=== PATIENT | male | born 1965 | race Caucasian/White ===

== ENCOUNTER 2023-02-25 09:53 | Outpatient (OUT) | payer OTHER, SELFPAY ==
[2023-02-25 10:30] LABS: Basophils Absolute Auto 0.1 10^3/uL (0.0-0.1); Eosinophils Absolute Auto 0.3 10^3/uL (0.0-0.7); Eosinophils Percent Auto 3.9 % (0.9-7.0); Hematocrit 42.5 % (42.0-54.0); Hemoglobin 14.7 g/dL (14.0-18.0); Immature Granulocytes Abs Auto 0.03 10^3/uL (0.00-0.03); Immature Granulocytes Pct Auto 0.4 % (0.0-0.5); Lymphocytes Absolute Auto 2.2 10^3/uL (1.2-3.8); Mean Corpuscular HGB Conc 34.6 g/dL (29.9-35.2); Mean Corpuscular Hemoglobin 30.5 pg (25.9-34.0); Mean Corpuscular Volume 88.2 fL (80.0-94.0); Mean Platelet Volume 9.4 fL (9.5-13.5); Monocytes Absolute Auto 0.7 10^3/uL (0.3-0.8); Monocytes Percent Auto 9.3 % (1.7-12.0); Neutrophils Absolute Auto 3.8 10^3/uL (1.4-6.5); Neutrophils Percent Auto 54.4 % (43.0-75.0); Platelet Count 285 10^3/uL (150-450); Red Blood Count 4.82 10^6/uL (4.70-6.10); Red Cell Distribution Width 12.8 % (11.0-15.0)
[2023-02-25 13:03] LABS: Alanine Aminotransferase 27 U/L (16-63); Albumin Globulin Ratio 1.3; Albumin Level 4.4 g/dL (3.4-5.0); Alkaline Phosphatase 88 U/L (46-116); Aspartate Amino Transferase 19 U/L (15-37); BUN Creatinine Ratio 13.4; Bilirubin Total 0.5 mg/dL (0.2-1.0); Calcium 9.3 mg/dL (8.5-10.1); Carbon Dioxide 26.5 mmol/L (21.0-32.0); Chloride 103 mmol/L (98-107); Chol HDL Ratio 4.5; Cholesterol 212 mg/dL (<=200); Estimated GFR (African America >60 (>=60); Estimated GFR (Non-African Ame >60 (>=60); Free T3 2.18 pg/mL (2.18-3.98); Globulin 3.5 g/dL; Glucose 125 mg/dL (74-106); HDL Cholesterol 47 mg/dL (40-60); Potassium 4.5 mmol/L (3.5-5.1); Sodium 139 mmol/L (136-145); Thyroid Stimulating Hormone 1.723 uIU/mL (0.358-3.740); Total Protein 7.9 g/dL (6.4-8.2); Triglycerides 126 mg/dL (<=150); VLDL CHOLESTEROL 25.2 mg/dL
[2023-02-25 13:14] LABS: Prostate Specific Antigen Scrn 0.42 ng/mL (<=4.00)
[2023-02-25 16:20] LABS: Estimated Average Glucose 128 mg/dL; Glycohemoglobin A1C 6.1 % (4.5-6.2)
== END 2023-02-25 09:54 | disposition home or self-care (01) ==
LOC: LAB 09:56
PROVIDERS: PCP Family Medicine; Visit Provider Family Medicine
DX: Z00.00 Encounter for general adult medical examination without abnormal findings (principal); Z12.5 Encounter for screening for malignant neoplasm of prostate
CPT/HCPCS: 36415; 80053; 80061; 83036; 84436; 84443; 84481; 85025; G0103

== ENCOUNTER 2023-03-18 09:09 | Outpatient (OUT) | payer OTHER, SELFPAY ==
--- NOTE | 2023-03-18 09:19 | CT_ITS ---
[address] [address] Patient Name: NATHALY ALEXANDER MRN: [id number] date: 1965 Sex: M Assigned Patient Location: CT Current Patient Location: CT Accession/Order Number: [id number] Exam Date: 03/18/2023 09:25 Report Date: 03/18/2023 11:32 At the request of: BEENA CHI Procedure: CT lung screening low-dose EXAMINATION: CT lung screening low-dose HISTORY: History Of Tobacco Dependence Z87.891 COMPARISON: No relevant comparison available. TECHNIQUE: Axial, Coronal, and Sagittal images were created without the administration of IV contrast material. Dose reduction techniques were achieved by using automated exposure control and/or adjustment of mA and/or kV according to patient size and/or use of iterative reconstruction technique. FINDINGS: LUNGS: No visible pulmonary disease. PLEURA: No mass, effusion, or pneumothorax. VASCULATURE: No abnormality. REYNALDO: No mass or pathologic adenopathy. MEDIASTINUM: No mass or pathologic adenopathy. CARDIAC: No enlargement, pericardial thickening, or significant calcification. AORTA: No aneurysm or dissection. CHEST WALL: No mass or axillary adenopathy BONES: No bone lesion or fracture. LIMITED ABDOMEN: No suspicious findings. Limited images of the upper abdomen. OTHER: Negative. CT/CT lung screening low-dose IMPRESSION: 1. Lung-RADS Category 1 Negative. No nodules and definitely benign nodules. Continue annual screening with LDCT in 12 months. Electronically authenticated by: YESENIA HANNON Date: 03/18/2023 11:32
== END 2023-03-18 09:10 | disposition home or self-care (01) ==
PROVIDERS: PCP Family Medicine; Visit Provider Family Medicine
DX: Z00.00 Encounter for general adult medical examination without abnormal findings (principal); Z87.891 Personal history of nicotine dependence
CPT/HCPCS: 71271

== ENCOUNTER 2023-10-28 08:52 | Outpatient (OUT) | payer OTHER, SELFPAY ==
[2023-10-28 09:25] LABS: Basophils Absolute Auto 0.1 10^3/uL (0.0-0.1); Basophils Percent Auto 0.6 % (0.2-2.0); Eosinophils Absolute Auto 0.3 10^3/uL (0.0-0.7); Eosinophils Percent Auto 2.7 % (0.9-7.0); Hematocrit 40.8 % (42.0-54.0); Immature Granulocytes Abs Auto 0.03 10^3/uL (0.00-0.03); Immature Granulocytes Pct Auto 0.3 % (0.0-0.5); Lymphocytes Absolute Auto 2.6 10^3/uL (1.2-3.8); Lymphocytes Percent Auto 24.8 % (20.5-60.0); Mean Corpuscular HGB Conc 34.3 g/dL (29.9-35.2); Mean Corpuscular Hemoglobin 30.8 pg (25.9-34.0); Mean Corpuscular Volume 89.9 fL (80.0-94.0); Monocytes Absolute Auto 0.7 10^3/uL (0.3-0.8); Monocytes Percent Auto 6.7 % (1.7-12.0); Neutrophils Absolute Auto 6.8 10^3/uL (1.4-6.5); Neutrophils Percent Auto 64.9 % (43.0-75.0); Platelet Count 300 10^3/uL (150-450); Red Blood Count 4.54 10^6/uL (4.70-6.10); Red Cell Distribution Width 12.4 % (11.0-15.0); White Blood Count 10.4 10^3/uL (4.0-11.0)
[2023-10-28 09:56] LABS: Estimated Average Glucose 128 mg/dL; Glycohemoglobin A1C 6.1 % (4.5-6.2)
[2023-10-28 10:00] LABS: Alanine Aminotransferase 32 U/L (16-63); Albumin Globulin Ratio 1.1; Albumin Level 4.3 g/dL (3.4-5.0); Alkaline Phosphatase 81 U/L (46-116); Anion Gap 15.3; Aspartate Amino Transferase 19 U/L (15-37); BUN Creatinine Ratio 12.1; Bilirubin Total 0.6 mg/dL (0.2-1.0); Calcium 9.6 mg/dL (8.5-10.1); Carbon Dioxide 27.7 mmol/L (21.0-32.0); Chloride 101 mmol/L (98-107); Chol HDL Ratio 4.2; Cholesterol 218 mg/dL (<=200); Estimated GFR (African America >60 (>=60); Estimated GFR (Non-African Ame >60 (>=60); Free T3 2.68 pg/mL (2.18-3.98); Globulin 3.8 g/dL; Glucose 120 mg/dL (74-106); HDL Cholesterol 52 mg/dL (40-60); Sodium 139 mmol/L (136-145); Thyroid Stimulating Hormone 2.392 uIU/mL (0.358-3.740); Total Protein 8.1 g/dL (6.4-8.2); Triglycerides 185 mg/dL (<=150)
[2023-10-28 10:14] LABS: Prostate Specific Antigen Scrn 0.47 ng/mL (<=4.00)
== END 2023-10-28 08:53 | disposition home or self-care (01) ==
LOC: LAB 08:53
PROVIDERS: PCP Family Medicine; Visit Provider Family Medicine
DX: Z00.00 Encounter for general adult medical examination without abnormal findings (principal)
CPT/HCPCS: 36415; 80053; 80061; 83036; 84436; 84443; 84481; 85025; G0103

== ENCOUNTER 2024-03-23 09:14 | Outpatient (OUT) | payer OTHER, SELFPAY ==
--- NOTE | 2024-03-23 09:18 | CT_ITS ---
[address] [address] Patient Name: NATHALY ALEXANDER MRN: [id number] date: 1965 Sex: M Assigned Patient Location: CT Current Patient Location: Accession/Order Number: [id number] Exam Date: 03/23/2024 09:20 Report Date: 03/28/2024 07:47 At the request of: BEENA CHI Procedure: CT lung screening low-dose EXAMINATION: CT lung screening low-dose HISTORY: Screening For Lung Cancer Z12.2 COMPARISON: 03/18/2023 TECHNIQUE: Axial, Coronal, and Sagittal images were created without the administration of IV contrast material. Dose reduction techniques were achieved by using automated exposure control and/or adjustment of mA and/or kV according to patient size and/or use of iterative reconstruction technique. FINDINGS: LUNGS: Biapical patchy nodular opacities, favor pleural parenchymal scarring largest nodular density measures 5.4 mm right upper lobe axial image 21. Calcified nodule left lower lobe likely granuloma. No evidence of interstitial lung disease or emphysema. No bronchiectasis PLEURA: No mass, effusion, or pneumothorax. VASCULATURE: No abnormality. REYNALDO: No mass or pathologic adenopathy. MEDIASTINUM: No mass or pathologic adenopathy. CARDIAC: No enlargement or pericardial effusion CORONARY ARTERIES: Coronary calcifications are heavy. AORTA: No aortic aneurysm. Mild calcific atherosclerosis CHEST WALL: No mass or axillary adenopathy BONES: No bone lesion or fracture. LIMITED ABDOMEN: No suspicious findings. Limited images of the upper abdomen. OTHER: Negative. CT/CT lung screening low-dose IMPRESSION: LUNG SCREENING: Lung-RADS Category 2- Benign Appearance or Behavior. Nodules with a very low likelihood of becoming a clinically active cancer due to size or lack of growth. 2. Continue annual screening with LDCT in 12 months. Electronically authenticated by: JORDEN HAWKINS Date: 03/28/2024 07:47
== END 2024-03-23 09:15 | disposition home or self-care (01) ==
LOC: CT 09:14
PROVIDERS: PCP Family Medicine; Visit Provider Family Medicine
DX: Z12.2 Encounter for screening for malignant neoplasm of respiratory organs (principal)
CPT/HCPCS: 71271

== ENCOUNTER 2024-10-17 09:48 | Outpatient (OUT) | payer OTHER, SELFPAY ==
--- OUTSIDE RECORDS SUMMARY | 2024-10-17 10:11 | XMS_ITS | CCD ---
Author Organization [facility] Care Team Providers Care School Counselor Name Role Phone Bridgette Loaiza Unavailable ARTI, DR HARGROVE Consulting Unavailable DANIELY, DR HARGROVE Primary Care Unavailable HOY, DR HARGROVE Admitting Unavailable HOY, DR HARGROVE Attending Unavailable HOY, DR HARGROVE Consulting Unavailable DANIELY, DR HARGROVE Primary Care Unavailable HOY, DR HARGROVE Admitting Unavailable HOSandra, DR HARGROVE Attending Unavailable DANIELY, DR HARGROVE Primary Care Unavailable LANEY, RIOS Admitting Unavailable LANEY, RIOS Attending Unavailable RIOS DAVISON Consulting Unavailable ARTI, DR HARGROVE Primary Care Unavailable DANIELY, DR HARGROVE Admitting Unavailable HOY, DR HARGROVE Attending Unavailable HOY, DR HARGROVE Primary Care Unavailable ARTI, DR HARGROVE Admitting Unavailable ARTI, DR HARGROVE Attending Unavailable Medications Current Medications Medication Drug Class(es) Dates Sig (Normalized) Sig (Original) cetirizine hydrochloride 10 mg oral tablet (2 sources) Histamine-1 Receptor Antagonist Start: 1 take 1 tablet by mouth every twelve hours Cetirizine HCl 10 MG 1 tablet Orally bid for 7 days Jun, Active famotidine 20 mg oral tablet (2 sources) Histamine-2 Receptor Antagonist Start: 1 take 1 tablet by mouth every twelve hours Famotidine 20 MG 1 tablet Orally Twice a day for 7 days Jun, Active Fenofibrate (2 sources) Peroxisome Proliferator Receptor alpha Agonist Fenofibrate Active irbesartan (2 sources) Angiotensin 2 Receptor Geni Irbesartan Active methylPREDNISolone 4 mg oral tablet (2 sources) Corticosteroid Start: 1 methylPREDNISolone 4 MG as directed Orally Once a day for 6 days Jun, Active Simvastatin (2 sources) HMG-CoA Reductase Inhibitor Simvastatin Active Problems Active Problems Problem Classification Problem Date Documented Date Episodic/Chronic Essential hypertension (1 source) Essential (primary) hypertension; Translations: [ESSENTIAL PRIMARY HYPERTENSION] Onset: 01-22-2022 Chronic Other aftercare (1 source) Other assisted (current) drug therapy; Translations: [OTH CORRECTION CURRENT DRUG THERAPY] Onset: 01-22-2022 Episodic Other injuries and conditions due to external causes (1 source) Angioneurotic edema, initial encounter; Translations: [ANGIONEUROTIC EDEMA INITIAL ENCNTR] Onset: 01-22-2022 Episodic Other screening for suspected conditions (not mental disorders or infectious disease) (1 source) Encounter for screening for malignant neoplasm of prostate; Translations: [ENC SCREEN MALIG NEOPLASM PROSTATE] Onset: 01-23-2022 Episodic Other skin disorders (3 sources) Localized swelling, mass and lump, unspecified; Translations: [LOCALIZED SWELLING MASS AND LUMP UNS] Onset: 01-20-2022 Episodic Past or Other Problems Problem Classification Problem Date Documented Da te Episodic/Chronic Allergic reactions (1 source) Allergy, unspecified, initial encounter Onset: 07-08-2021 Resolved: 07-08-2021 Episodic Results Test Name Value Interpretation Reference Range Facil ity COMPLEMENT C1 ESTERASE INHIB ITORon 01-23-2022 C1 ESTERASE INHIBITOR 55 mg/dL Critically high 21-39 [facility] Comment on above: Performed By: #### C 1EI #### [facility] [address] [place] [address] Dr. Gerard Horta INSULINon 01-23-2022 Insulin 8.0 uIU/mL Normal 2.6-24.9 [facility] Comment on above: Performed By: #### I NSULIN #### [facility] [address] [place] [address] Dr. Gerard Horta CBC AUTO DIFFon 01-22-2022 BASO # 0.0 103/ul Normal 0.0-0.1 [facility] Comment on above: Performed By: #### C BC #### [facility] [address] [place] [address] Dr. Gerard Horta Basophils/100 WBC (Bld) 0.2 % Normal 0.2-2.0 [facility] Comment on above: Performed By: #### C BC #### [facility] [address] [place] [address] Dr. Gerard Horta EO # 0.0 103/ul Normal 0.0-0.7 [facility] Comment on above: Performed By: #### C BC #### [facility] [address] [place] [address] Dr. Gerard Horta Eosinophils/100 WBC (Bld) 0.1 % Critically low 0.9-7.0 [facility] Comment on above: Performed By: #### C BC #### [facility] [address] [place] [address] Dr. Gerard Horta Erythrocyte distribution width (RBC) [Ratio] 14.1 % Normal 11.0-15.0 [facility] Comment on above: Performed By: #### C BC #### [facility] [address] [place] [address] Dr. Gerard Horta Hematocrit (Bld) [Volume fraction] 39.3 % Critically low 42.0-54.0 [facility] Comment on above: Performed By: #### C BC #### [facility] [address] [place] [address] Dr. Gerard Horta Hemoglobin (Bld) [Mass/Vol] 13.3 g/dL Critically low 14.0-18.0 [facility] Comment on above: Performed By: #### C BC #### [facility] [address] [place] [address] Dr. Gerard Horta IG # 0.11 10e3/ul Critically high 0.00-0.03 [facility] Comment on above: Performed By: #### C BC #### [facility] [address] [place] [address] Dr. Gerard Horta IG % 0.7 % Critically high 0.0-0.5 [facility] Comment on above: Performed By: #### C BC #### [facility] [address] [place] [address] Dr. Gerard Horta LYMPH # 3.2 103/ul Normal 1.2-3.8 [facility] Comment on above: Performed By: #### C BC #### [facility] [address] [place] [address] Dr. Gerard Horta Lymphocytes/100 WBC (Bld) 20.1 % Critically low 20.5-60.0 [facility] Comment on above: Performed By: #### C BC #### [facility] [address] [place] [address] Dr. Gerard Horta MANUAL DIFF REQ NO Normal [facility] Comment on above: Performed By: #### C BC #### [facility] [address] [place] [address] Dr. Gerard Horta MCH (RBC) [Entitic mass] 30.9 pg Normal 25.9-34.0 [facility] Comment on above: Performed By: #### C BC #### [facility] [address] [place] [address] Dr. Gerard Horta MCHC (RBC) [Mass/Vol] 33.8 g/dL Normal 29.9-35.2 [facility] Comment on above: Performed By: #### C BC #### [facility] [address] [place] [address] Dr. Gerard Horta MCV (RBC) [Entitic vol] 91.2 fL Normal 80.0-94.0 [facility] Comment on above: Performed By: #### C BC #### [facility] [address] [place] [address] Dr. Gerard Horta MONO # 1.0 103/ul Critically high 0.3-0.8 [facility] Comment on above: Performed By: #### C BC #### [facility] [address] [place] [address] Dr. Gerard Horta Monocytes/100 WBC (Bld) 6.0 % Normal 1.7-12.0 [facility] Comment on above: Performed By: #### C BC #### [facility] [address] [place] [address] Dr. Gerard Horta NEUT # 11.6 103/ul Critically high 1.4-6.[address] [facility] Comment on above: Performed By: #### C BC #### [facility] [address] [place] [address] Dr. Gerard Horta Neutrophils/100 WBC (Bld) 72.9 % Normal 43.0-75.0 [facility] Comment on above: Performed By: #### C BC #### [facility] [address] [address] [address] Gerard Horta Platelet mean volume (Bld) [Entitic vol] 9.0 fL Critically low 9.5-13.5 [facility] Comment on above: Performed By: #### C BC #### [facility] [address] [address] [address] Gerard Horta PLT 369 103/ul Normal 150-450 [facility] Comment on above: Performed By: #### C BC #### [facility] [address] [place] [address] Dr. Gerard Horta RBC 4.31 106/ul Critically low 4.70-6.[address] [facility] Comment on above: Performed By: #### C BC #### [facility] [address] [place] [address] Dr. Gerard Horta WBC 15.9 103/ul Critically high 4.0-11.0 [facility] Comment on above: Performed By: #### C BC #### [facility] [address] [place] [address] Dr. Gerard Horta GLYCOHEMOGLOBIN A1Con 2021 ADA RECOMMENDATION SEE BELOW Normal [facility] Comment on above: Result Comment: ADA RECOMMENDED LIMIT 4.0 - 6.0 ADA THERAPEUTIC TARGET < 7.0 ACTION SUGGESTED > 7.0 Performed By: #### C 1EI #### [facility] [address] [place] [address] Dr. Gerard Horta Glucose [Mass/Vol] 143 mg/dL Normal [facility] Comment on above: Performed By: #### C 1EI #### [facility] [address] [place] [address] Dr. Gerard Horta HbA1c (Bld) [Mass fraction] 6.6 % Critically high 4.5-6.2 [facility] Comment on above: Performed By: #### C 1EI #### [facility] [address] [place], [place] [id number] Dr. Gerard Horta LIPID PROFILEon 01-22-2022 CHOL-HDL RATIO NORM SEE BELOW Normal [facility] Comment on above: Result Comment: 3.3 - 4.4 LOW RISK 4.4 - 7.1 AVERAGE RISK 7.1 - 11.0 MODERATE RISK >11.0 HIGH RISK Performed By: #### C MP, LIPID #### [facility] [address] [address] [address] Gerard Horta Cholesterol [Mass/Vol] 248 mg/dL Critically high <=200 [facility] Comment on above: Performed By: #### C MP, LIPID #### [facility] [address] [address] [address] Gerard Horta Cholesterol in HDL [Mass/Vol] 61 mg/dL Critically high 40-60 [facility] Comment on above: Performed By: #### C MP, LIPID #### [facility] [address] [address] [address] Gerard Horta Cholesterol in LDL [Mass/Vol] 159.8 mg/dL Normal [facility] Comment on above: Performed By: #### C MP, LIPID #### [facility] [address] [address] [address] Gerard Horta Cholesterol.total/Cho lesterol in HDL [Mass ratio] 4.1 {ratio} Normal [facility] Comment on above: Performed By: #### C MP, LIPID #### [facility] [address] [address] [address] Gerard Horta HDL NORMAL > or = 60 mg/dl - LOW CARDIOVASCULAR RISK <40 mg/dl - HIGH CARDIOVASCULAR RISK Normal [facility] Comment on above: Performed By: #### C MP, LIPID #### [facility] [address] [address] [address] Gerard Horta LDL CALC NORMAL SEE BELOW Normal [facility] Comment on above: Result Comment: <100 mg/dl OPTIMAL 100 - 129 mg/dl NEAR OR ABOVE OPTIMAL 130 - 159 mg/dl BORDERLINE HIGH 160 - 189 mg/dl HIGH >190 mg/dl VERY HIGH Performed By: #### C MP, LIPID #### [facility] [address] [place] [address] Dr. Gerard Horta Triglyceride [Mass/Vol] 136 mg/dL Normal <=150 [facility] Comment on above: Performed By: #### C MP, LIPID #### [facility] [address] [place] [address] Dr. Gerard Horta VLDL CALC 27.2 mg/dL Normal [facility] Comment on above: Performed By: #### C MP, LIPID #### [facility] [address] [place] [address] Dr. Gerard Horta PROF 14(COMP METB)on 022 Albumin [Mass/Vol] 4.1 g/dL Normal 3.4-5.0 [facility] Comment on above: Performed By: #### C MP, LIPID #### [facility] [address] [place] [address] Dr. Gerard Horta Albumin/Globulin [Mass ratio] 1.1 {ratio} Normal [facility] Comment on above: Performed By: #### C MP, LIPID #### [facility] [address] [place] [address] Dr. Gerard Horta ALP [Catalytic activity/Vol] 84 U/L Normal 46-116 [facility] Comment on above: Performed By: #### C MP, LIPID #### [facility] [address] [place] [address] Dr. Gerard Horta ALT [Catalytic activity/Vol] 25 U/L Normal 16-63 [facility] Comment on above: Performed By: #### C MP, LIPID #### [facility] [address] [place] [address] Dr. Gerard Horta Anion gap [Moles/Vol] 13.2 mmol/L Normal [facility] Comment on above: Performed By: #### C MP, LIPID #### [facility] [address] [place] [address] Dr. Gerard Horta AST [Catalytic activity/Vol] 12 U/L Critically low 15-37 [facility] Comment on above: Performed By: #### C MP, LIPID #### [facility] [address] [address] [address] Gerard Horta Bilirubin [Mass/Vol] 0.4 mg/dL Normal 0.2-1.0 [facility] Comment on above: Performed By: #### C MP, LIPID #### [facility] [address] [place] [address] Dr. Gerard Horta Calcium [Mass/Vol] 9.4 mg/dL Normal 8.5-10.1 [facility] Comment on above: Performed By: #### C MP, LIPID #### [facility] [address] [place] [address] Dr. Gerard Horta Chloride [Moles/Vol] 103 mmol/L Normal 98-107 [facility] Comment on above: Performed By: #### C MP, LIPID #### [facility] [address] [place] [address] Dr. Gerard Horta CO2 [Moles/Vol] 27.3 mmol/L Normal 21.0-32.[address] [facility] Comment on above: Performed By: #### C MP, LIPID #### [facility] [address] [place] [address] Dr. Gerard Horta Creatinine [Mass/Vol] 0.89 mg/dL Normal 0.70-1.30 [facility] Comment on above: Performed By: #### C MP, LIPID #### [facility] [address] [place] [address] Dr. Gerard Horta EGFR-AF KOSOVAN >60 Normal >=[address] [facility] Comment on above: Performed By: #### C MP, LIPID #### [facility] [address] [place] [address] Dr. Gerard Horta EGFR-NON AF KOSOVAN >60 Normal >=60 [facility] Comment on above: Performed By: #### C MP, LIPID #### [facility] [address] [place] [address] Dr. Gerard Horta Globulin (S) [Mass/Vol] 3.6 g/dL Normal [facility] Comment on above: Performed By: #### C MP, LIPID #### [facility] [address] [place] [address] Dr. Gerard Horta Glucose [Mass/Vol] 122 mg/dL Critically high 74-106 [facility] Comment on above: Performed By: #### C MP, LIPID #### [facility] [address] [place] [address] Dr. Gerard Horta Potassium [Moles/Vol] 4.5 mmol/L Normal 3.5-5.1 [facility] Comment on above: Performed By: #### C MP, LIPID #### [facility] [address] [place] [address] Dr. Gerard Horta Protein [Mass/Vol] 7.7 g/dL Normal 6.4-8.2 [facility] Comment on above: Performed By: #### C MP, LIPID #### [facility] [address] [place] [address] Dr. Gerard Horta Sodium [Moles/Vol] 139 mmol/L Normal 136-145 [facility] Comment on above: Performed By: #### C MP, LIPID #### [facility] [address] [place] [address] Dr. Gerard Horta Urea nitrogen [Mass/Vol] 13.0 mg/dL Normal 7.0-18.0 [facility] Comment on above: Performed By: #### C MP, LIPID #### [facility] [address] [place] [address] Dr. Gerard Horta Urea nitrogen/Creatinine [Mass ratio] 14.6 mg/mg Normal [facility] Comment on above: Performed By: #### C MP, LIPID #### [facility] [address] [place] [address] Dr. Gerard Horta INSULINon 03-15-2021 Insulin 9.8 uIU/mL Normal 2.6-24.9 [facility] Comment on above: Performed By: #### I NSULIN #### [facility] [address] [place] [address] Jeff Michelle CBC AUTO DIFFon 03-14-2021 BASO # 0.0 103/ul Normal 0.0-0.1 [facility] Comment on above: Performed By: #### C BC #### [facility] [address] [place], [place] [address] Jeff Viviana Basophils/100 WBC (Bld) 0.4 % Normal 0.2-2.0 [facility] Comment on above: Performed By: #### C BC #### [facility] [address] [id number] Jeff Viviana EO # 0.2 103/ul Normal 0.0-0.7 [facility] Comment on above: Performed By: #### C BC #### [facility] [address] [id number] Jeff Viviana Eosinophils/100 WBC (Bld) 2.1 % Normal 0.9-7.0 [facility] Comment on above: Performed By: #### C BC #### [facility] [address] [address] Jeff Viviana Erythrocyte distribution width (RBC) [Ratio] 12.4 % Normal 11.0-15.0 [facility] Comment on above: Performed By: #### C BC #### [facility] [address] [id number] Jeff Viviana Hematocrit (Bld) [Volume fraction] 41.0 % Critically low 42.0-54.0 [facility] Comment on above: Performed By: #### C BC #### [facility] [address] [id number] Jeff Viviana Hemoglobin (Bld) [Mass/Vol] 13.9 g/dL Critically low 14.0-18.0 [facility] Comment on above: Performed By: #### C BC #### [facility] [address] [id number] Jeff Viviana IG # 0.06 10e3/ul Critically high 0.00-0.03 [facility] Comment on above: Performed By: #### C BC #### [facility] [address] [phone] Jeff Viviana IG % 0.6 % Critically high 0.0-0.5 [facility] Comment on above: Performed By: #### C BC #### [facility] [address] [place] [address] Jeff Viviana LYMPH # 2.5 103/ul Normal 1.2-3.8 [facility] Comment on above: Performed By: #### C BC #### [facility] [address] [place], [place] [id number] Jeff Viviana Lymphocytes/100 WBC (Bld) 24.9 % Normal 20.5-60.0 [facility] Comment on above: Performed By: #### C BC #### [facility] [address] [place], [place] [id number] Jeff Viviana MANUAL DIFF REQ NO Normal [facility] Comment on above: Performed By: #### C BC #### [facility] [address] [place], [place] [id number] Jeff Viviana MCH (RBC) [Entitic mass] 30.5 pg Normal 25.9-34.0 [facility] Comment on above: Performed By: #### C BC #### [facility] [address] [place] [address] Jefflopez Michelle MCHC (RBC) [Mass/Vol] 33.9 g/dL Normal 29.9-35.2 [facility] Comment on above: Performed By: #### C BC #### [facility] [address] [place] [address] Jeff Viviana MCV (RBC) [Entitic vol] 90.1 fL Normal 80.0-94.0 [facility] Comment on above: Performed By: #### C BC #### [facility] [address] [place] [address] Jeff Viviana MONO # 0.7 103/ul Normal 0.3-0.8 [facility] Comment on above: Performed By: #### C BC #### [facility] [address] [place] [address] Jeff Viviana Monocytes/100 WBC (Bld) 7.1 % Normal 1.7-12.0 [facility] Comment on above: Performed By: #### C BC #### [facility] [address] [place] [address] Jeff Viviana NEUT # 6.4 103/ul Normal 1.4-6.5 [facility] Comment on above: Performed By: #### C BC #### [facility] [address] [phone] Jeff Michelle Neutrophils/100 WBC (Bld) 64.9 % Normal 43.0-75.0 [facility] Comment on above: Performed By: #### C BC #### [facility] [address] [phone] Jeff Michelle Platelet mean volume (Bld) [Entitic vol] 9.4 fL Critically low 9.5-13.5 [facility] Comment on above: Performed By: #### C BC #### [facility] [address] [place], [place] [id number] Jeff Michelle PLT 326 103/ul Normal 150-450 [facility] Comment on above: Performed By: #### C BC #### [facility] [address] [place], [place] [id number] Jeff Michelle RBC 4.55 106/ul Critically low 4.70-6.[address] [facility] Comment on above: Performed By: #### C BC #### [facility] [address] [phone] Jeff Michelle WBC 9.9 103/ul Normal 4.0-11.0 [facility] Comment on above: Performed By: #### C BC #### [facility] [address] [phone] Jeff Michelle GLYCOHEMOGLOBIN A1Con 2020 ADA RECOMMENDATION ADA THERAPEUTIC TARGET 6.0 - 7.0 ACTION SUGGESTED > 7.0 Normal [facility] Comment on above: Performed By: #### A 1C #### [facility] [address] [phone] Jeff Michelle Glucose [Mass/Vol] 123 mg/dL Normal [facility] Comment on above: Performed By: #### A 1C #### [facility] [address] [phone] Jeff Michelle HbA1c (Bld) [Mass fraction] 5.9 % Normal <=6.0 [facility] Comment on above: Performed By: #### A 1C #### [facility] [address] [place], [place] [address] Jeff Michelle LIPID PROFILEon 03-14-2021 CHOL-HDL RATIO NORM SEE BELOW Normal [facility] Comment on above: Result Comment: 3.3 - 4.4 LOW RISK 4.4 - 7.1 AVERAGE RISK 7.1 - 11.0 MODERATE RISK >11.0 HIGH RISK Performed By: #### C 1EI #### [facility] [address] [address] [address] Gerard Horta Cholesterol [Mass/Vol] 251 mg/dL Critically high <=200 [facility] Comment on above: Performed By: #### C 1EI #### [facility] [address] [address] [address] Gerard Horta Cholesterol in HDL [Mass/Vol] 45 mg/dL Normal [facility] Comment on above: Performed By: #### C 1EI #### [facility] [address] [address] [address] Gerard Horta Cholesterol in LDL [Mass/Vol] 183.4 mg/dL Normal [facility] Comment on above: Performed By: #### C 1EI #### [facility] [address] [address] [address] Gerard Horta Cholesterol.total/Cho lesterol in HDL [Mass ratio] 5.6 {ratio} Normal [facility] Comment on above: Performed By: #### C 1EI #### [facility] [address] [address] [address] Gerard Horta HDL NORMAL > or = 60 mg/dl - LOW CARDIOVASCULAR RISK <40 mg/dl - HIGH CARDIOVASCULAR RISK Normal [facility] Comment on above: Performed By: #### C 1EI #### [facility] [address] [phone] Gerard Horta LDL CALC NORMAL SEE BELOW Normal [facility] Comment on above: Result Comment: <100 mg/dl OPTIMAL 100 - 129 mg/dl NEAR OR ABOVE OPTIMAL 130 - 159 mg/dl BORDERLINE HIGH 160 - 189 mg/dl HIGH >190 mg/dl VERY HIGH Performed By: #### C 1EI #### [facility] [address] [address] [address] Gerard Horta Triglyceride [Mass/Vol] 113 mg/dL Normal <=150 [facility] Comment on above: Performed By: #### C 1EI #### [facility] [address] [address] [address] Gerard Horta VLDL CALC 22.6 mg/dL Normal [facility] Comment on above: Performed By: #### C 1EI #### [facility] [address] [address] [address] Gerard Horta PROF 14(COMP METB)on 021 Albumin [Mass/Vol] 4.0 g/dL Normal 3.5-5.0 [facility] Comment on above: Performed By: #### C 1EI #### [facility] [address] [place] [address] Dr. Gerard Horta Albumin/Globulin [Mass ratio] 1.0 {ratio} Normal [facility] Comment on above: Performed By: #### C 1EI #### [facility] [address] [address] [address] Gerard Horta ALP [Catalytic activity/Vol] 117 U/L Normal 38-126 [facility] Comment on above: Performed By: #### C 1EI #### [facility] [address] [place] [address] Dr. Gerard Horta ALT [Catalytic activity/Vol] 18 U/L Critically low 21-72 [facility] Comment on above: Performed By: #### C 1EI #### [facility] [address] [place] [address] Dr. Gerard Horta Anion gap [Moles/Vol] 15.1 mmol/L Normal [facility] Comment on above: Performed By: #### C 1EI #### [facility] [address] [place] [address] Dr. Gerard Horta AST [Catalytic activity/Vol] 13 U/L Critically low 17-59 [facility] Comment on above: Performed By: #### C 1EI #### [facility] [address] [address] [address] Gerard Horta Bilirubin [Mass/Vol] 0.3 mg/dL Normal 0.2-1.3 [facility] Comment on above: Performed By: #### C 1EI #### [facility] [address] [address] [address] Gerard Horta Calcium [Mass/Vol] 9.6 mg/dL Normal 8.4-10.2 [facility] Comment on above: Performed By: #### C 1EI #### [facility] [address] [address] [address] Gerard Horta Chloride [Moles/Vol] 104 mmol/L Normal 98-107 [facility] Comment on above: Performed By: #### C 1EI #### [facility] [address] [place] [address] Dr. Gerard Horta CO2 [Moles/Vol] 28.9 mmol/L Normal 22.0-30.0 [facility] Comment on above: Performed By: #### C 1EI #### [facility] [address] [place] [address] Dr. Gerard Horta Creatinine [Mass/Vol] 0.71 mg/dL Normal 0.66-1.25 [facility] Comment on above: Performed By: #### C 1EI #### [facility] [address] [place] [address] Dr. Gerard Horta EGFR-AF KOSOVAN >60 Normal >=[address] [facility] Comment on above: Performed By: #### C 1EI #### [facility] [address] [place] [address] Dr. Gerard Horta EGFR-NON AF KOSOVAN >60 Normal >=60 [facility] Comment on above: Performed By: #### C 1EI #### [facility] [address] [place] [address] Dr. Gerard Horta Globulin (S) [Mass/Vol] 4.0 g/dL Normal [facility] Comment on above: Performed By: #### C 1EI #### [facility] [address] [place] [address] Dr. Gerard Horta Glucose [Mass/Vol] 111 mg/dL Critically high 74-106 [facility] Comment on above: Performed By: #### C 1EI #### [facility] [address] [address] [address] Gerard Horta Potassium [Moles/Vol] 5.0 mmol/L Normal 3.4-5.0 [facility] Comment on above: Performed By: #### C 1EI #### [facility] [address] [address] [address] Gerard Horta Protein [Mass/Vol] 8.0 g/dL Normal 6.1-8.2 [facility] Comment on above: Performed By: #### C 1EI #### [facility] [address] [place] [address] Dr. Gerard Horta Sodium [Moles/Vol] 143 mmol/L Normal 137-145 [facility] Comment on above: Performed By: #### C 1EI #### [facility] [address] [place] [address] Dr. Gerard Horta Urea nitrogen [Mass/Vol] 7.0 mg/dL Critically low 9.0-20.0 [facility] Comment on above: Performed By: #### C 1EI #### [facility] [address] [place] [address] Dr. Gerard Horta Urea nitrogen/Creatinine [Mass ratio] 9.9 mg/mg Normal [facility] Comment on above: Performed By: #### C 1EI #### [facility] [address] [place] [address] Dr. Gerard Horta URIC ACID SERUMon 03-14-2021 Urate [Mass/Vol] 5.3 mg/dL Normal 3.5-8.5 [facility] Comment on above: Performed By: #### C 1EI #### [facility] [address] [place] [address] Dr. Gerard Horta Physician Referralon 020 Physician Referral [id number] #[id number] Normal [facility] Vital Signs Date Time Vital Sign Value Performing Clinician Facility 07-08-2021 19:20-0500 Body height 170.18 cm Bridgette Loaiza Other [facility] 07-08-2021 19:20-0500 Body mass index (BMI) [Ratio] 25.84 kg/m2 Bridgette Loaiza Other [facility] 07-08-2021 19:20-0500 Body temperature 97.7 [degF] Bridgette Loaiza Other [facility] 07-08-2021 19:20-0500 Body weight 74.84 kg Bridgette Loaiza Other [facility] 07-08-2021 19:20-0500 Diastolic blood pressure 89 mm[Hg] Bridgette Gongoraault Other [facility] Other 07-08-2021 19:20-0500 Respiratory rate 18 /min Bridgette Loaiza Other [facility] 07-08-2021 19:20-0500 SaO2% (BldA) [Mass fraction] 99 % Bridgette Fadia Other [facility] Other 07-08-2021 19:20-0500 Systolic blood pressure 132 mm[Hg] Bridgette Gongoraault Other [facility] Other Encounters Encounter Date Encounter Type Care Provider Facility Start: 04-10-[address] BEENA CHI Facility :[facility] Start: 02-13-[address] BEENA CHI Facility :[facility] Start: 01-23-2022 Encounter for genera l adult medical examination without abnormal findings DR BEENA CHI [facility] Start: 01-22-2022 End: 01-23-[address] BEENA CHI Facility:[facility] Start: 01-22-2022 End: 01-23-2022 Encounter for general adult medical examination without abnormal findings DR BEENA CHI Facility:[facility] Start: 01-20-2022 End: 01-20-[address] BEENA CHI [facility] Start: 01-20-2022 Patient encounter procedure Bridgette Loaiza [facility] Start: 07-08-2021 End: 07-08-2021 ambulatory Bridgette Loaiza Other [facility] Start: 07-08-2021 Office outpatient ne w 30 minutes Bridgette Loaiza [facility] Start: 03-14-2021 End: 03-15-[address] BEENA CHI Facility:[facility] Procedures Date Procedure Procedure Detail Performing Clinician Start: 01-22-[address] ISELA CHI Comment on above: Performed By: #### P SASC #### [facility] [address] [address] [address] Gerard Horta Start: 03-14-[address] ISELA CHI Comment on above: Performed By: #### P SASC #### [facility] [address] [id number] Jeff Viviana Payers Date Payer Category Payer Unknown [id number] 1965 Unknown [id number] [id number] [id number] 1964 Unknown [id number] 2.16.84 [id number] 1964 Unknown [id number] 2.16.84 [id number] 1964 Unknown [id number] 2.16.84 [id number] 1960 Self-pay [id number] 1960 Unknown [id number] Social History Date Type Detail Facility Sex Assigned At [facility] Other Evaluation note 07-08-2021 Note Date & Type Note Facility 07-08-2021 Evaluation note Encounter Date Diagnosis Assessment Notes Jun, Allergic reaction, initial encounter (ICD-10 - T78.40XA) Today we are treating for allergic reaction. Start all other medication today. Follow up with primary care provider to discuss reaction. [facility] Other Evaluation note Note Date & Type Note Facility Evaluation note No Information [facility] Other History general Narrative - Reported Note Date & Type Note Facility History general Narrative - Reported Type Medical History hypertension Medical History high cholesterol [facility] Other Summary Purpose Family History No Family History Records FoundNo Family History Records Found Advance Directives No Advanced Directives Records FoundNo Advanced Directives Records Found Additional Source Comments (unrecognized sect ion and content) No Status Records FoundNo Status Records Found INFORMATION SOURCE (unrecogn ized section and content) DATE CREATED AUTHOR 05/22/2020 [facility] DATE CREATED AUTHOR AUTHOR'S MARILY MCKEE 02/14/2022 [facility] REASON FOR VISIT (unrecogniz ed section and content) SWELLING ON FACETONGUE SWELL ING FOR RECORDS PERTAINING TO PATIENTS WHO ARE OR HAVE BEEN ENROLLED IN A CHEMICAL DEPENDENCY/SUBSTANCEABUSE PROGRAM, SOME INFORMATION MAY BE OMITTED. This clinical summary was aggregated from multiple sources. Caution should be exercised in using it in the provision of clinical care. This summary normalizes information from multiple sources, and as a consequence, information in this document may materially change the coding, format and clinical context of patient data. In addition, data may be omitted in some cases. CLINICAL DECISIONS SHOULD BE BASED ON THE PRIMARY CLINICAL RECORDS. [employer] provides no warranty or guarantee of the accuracy or completeness of information in this document.
[2024-10-17 10:30] LABS: Estimated Average Glucose 134 mg/dL; Glycohemoglobin A1C 6.3 % (4.5-6.2)
[2024-10-17 11:19] LABS: Prostate Specific Antigen Scrn 0.54 ng/mL (<=4.00)
[2024-10-17 11:23] LABS: Alanine Aminotransferase 26 U/L (16-63); Albumin Globulin Ratio 1.2; Albumin Level 4.3 g/dL (3.4-5.0); Alkaline Phosphatase 114 U/L (46-116); Anion Gap 15.8; Aspartate Amino Transferase 18 U/L (15-37); BUN Creatinine Ratio 8.5; Bilirubin Total 0.3 mg/dL (0.2-1.0); Carbon Dioxide 27.7 mmol/L (21.0-32.0); Chloride 102 mmol/L (98-107); Cholesterol 213 mg/dL (<=200); Estimated GFR (African America >60 (>=60 mL/min/1.73m^2); Estimated GFR (Non-African Ame >60 (>=60 mL/min/1.73m^2); Free T3 2.75 pg/mL (2.18-3.98); Globulin 3.6 g/dL; Glucose 131 mg/dL (74-106); HDL Cholesterol 53 mg/dL (40-60); Potassium 4.5 mmol/L (3.5-5.1); Sodium 141 mmol/L (136-145); Thyroid Stimulating Hormone 2.225 uIU/mL (0.358-3.740); Total Protein 7.9 g/dL (6.4-8.2); Triglycerides 151 mg/dL (<=150); VLDL CHOLESTEROL 30.2 mg/dL
== END 2024-10-17 09:49 | disposition home or self-care (01) ==
LOC: LAB 09:50
PROVIDERS: PCP Family Medicine; Visit Provider Family Medicine
DX: Z00.00 Encounter for general adult medical examination without abnormal findings (principal); Z12.5 Encounter for screening for malignant neoplasm of prostate
CPT/HCPCS: 36415; 80053; 80061; 83036; 84436; 84443; 84481; G0103